=== PATIENT | female | born 1965 | race Caucasian/White ===

== ENCOUNTER 2021-09-21 13:26 | Emergency (ER) | payer OTHER ==
[~2021-09-21] VITALS: Ht 162.6 cm; Wt 90.7 kg
[2021-09-21] MEDS ORDERED: METFORMIN HCL500 MG (13:38)
== END 2021-09-21 15:44 | disposition home or self-care (01) ==
LOC: ER 13:26
DX: R42 Dizziness and giddiness (principal)